=== PATIENT | female | born 1950 | race Caucasian/White ===

== ENCOUNTER → 2016-08-22 | Outpatient (CLI) | payer OTHER ==
[2016-08-22 13:26] LABS: ALT/SGPT 20 U/L (12-78); AST/SGOT 17 U/L (15-37); BLOOD UREA NITROGEN 20 mg/dl (7-18); BUN/CREATININE RATIO 26.2 (10-20); CALCIUM 9.2 mg/dl (8.5-10.1); CARBON DIOXIDE 24 mmol/L (21-32); CHLORIDE 104 mmol/L (98-107); CHOLESTEROL 127 mg/dl (0-200); CREATININE 0.78 mg/dl (0.60-1.20); GLUCOSE 115 mg/dl (70-99); POTASSIUM 3.8 mmol/L (3.5-5.1); SODIUM 142 mmol/L (136-145); TRIGLYCERIDES 133 mg/dl (0-150); VERY LOW DENSITY LIPOPROT CALC 27 mg/dl
[2016-08-22 13:28] LABS: CHOLESTEROL/HDL RATIO 2.2; HDL CHOLESTEROL 58 mg/dl
== END | disposition home or self-care (01) ==
LOC: C.LABMFLN 08:33
PROVIDERS: ATTEND Family Medicine
DX: I10 Essential (primary) hypertension (principal); E55.9 Vitamin D deficiency, unspecified; E78.00 Pure hypercholesterolemia, unspecified; R73.01 Impaired fasting glucose

== ENCOUNTER → 2017-01-07 | Outpatient (CLI) | payer OTHER ==
[2017-01-07 14:16] LABS: ESTIMATED AVERAGE GLUCOSE 128 mg/dl; HA1C FLAG Normal (Normal)
== END ==
LOC: C.LABMFLN 10:05
PROVIDERS: ATTEND Family Medicine
DX: I10 Essential (primary) hypertension (principal); E55.9 Vitamin D deficiency, unspecified; R73.01 Impaired fasting glucose

== ENCOUNTER → 2017-07-10 | Outpatient (CLI) | payer OTHER ==
[2017-07-10 13:16] LABS: ALT/SGPT 23 U/L (12-78); BLOOD UREA NITROGEN 23 mg/dl (7-18); BUN/CREATININE RATIO 30.3 (10-20); CARBON DIOXIDE 27 mmol/L (21-32); CHLORIDE 103 mmol/L (98-107); CREATININE 0.75 mg/dl (0.60-1.20); GLUCOSE 110 mg/dl (70-99); POTASSIUM 3.9 mmol/L (3.5-5.1); SODIUM 138 mmol/L (136-145)
[2017-07-10 13:22] LABS: ESTIMATED AVERAGE GLUCOSE 128 mg/dl; HA1C FLAG Normal (Normal)
== END | disposition home or self-care (01) ==
LOC: C.LABMFLN 09:47
PROVIDERS: ATTEND Family Medicine
DX: I10 Essential (primary) hypertension (principal); E55.9 Vitamin D deficiency, unspecified; E11.40 Type 2 diabetes mellitus with diabetic neuropathy, unspecified; E78.00 Pure hypercholesterolemia, unspecified

== ENCOUNTER → 2018-02-24 | Outpatient (CLI) | payer OTHER | END | disposition home or self-care (01) | LOC: C.LABMFLN 10:09 | PROVIDERS: ATTEND Family Medicine | DX: A41.9 Sepsis, unspecified organism (principal) ==

== ENCOUNTER 2023-12-02 08:22 | Observation (INO) ==
--- NOTE | 2023-11-02 14:48 | PAT Medication Instructions ---
Medication Instructions Date of Service November 02, 2023 Home Medications Medication Instructions Recorded blood-glucose meter (OneTouch #1 ea 04/24/20 Ultra2 Meter kit) CPAP 4 cm Water Full Face mask #1 ea 08/06/20 blood sugar diagnostic #100 ea 10/23/22 lancets 33 gauge #100 ea 10/23/22 metformin 500 mg tablet 500 mg PO QAM #90 tabs 06/05/23 colestipol 1 gram tablet (Colestid) 2 g (2 x 1 gram) PO BID #360 tabs 08/07/23 sertraline 50 mg tablet 50 mg PO QAM #90 tabs 09/14/23 atorvastatin 20 mg tablet 20 mg PO HS #90 tabs 09/25/23 gabapentin 300 mg capsule See Rx Instructions .Route 10/19/23 .COMPLEX #150 caps hydrocodone 7.5 mg-acetaminophen 1 tab PO BID PRN pain #60 tabs 10/20/23 325 mg tablet potassium citrate 5 mEq (540 mg) 5 meq PO BID #60 tabs 10/20/23 tablet,extended release (Urocit-K 5) Medication List: aspirin 81 mg tablet,delayed release 81 mg PO QAM cyanocobalamin (vitamin B-12) 1,000 mcg/mL injection solution 1,000 mcg IM Q30D metformin 500 mg tablet 500 mg PO QAM lisinopril 20 mg tablet 20 mg PO QAM ascorbic acid (vitamin C) 250 mg tablet 500 mg PO QAM cranberry 500 mg capsule 500 mg PO QAM diphenhydramine 25 mg-acetaminophen 500 mg tablet (Tylenol PM Extra Strength) 1 tab PO HS ferrous sulfate 325 mg (65 mg iron) tablet 325 mg PO QAM ondansetron 4 mg disintegrating tablet 4 mg PO Q8H PRN Nausea colestipol 1 gram tablet (Colestid) 2 g (2 x 1 gram) PO BID multivitamin (Daily Multi-Vitamin tablet) 1 tab PO DAILY sertraline 50 mg tablet 50 mg PO QAM atorvastatin 20 mg tablet 20 mg PO HS gabapentin 300 mg capsule See Rx Instructions .Route .COMPLEX hydrocodone 7.5 mg-acetaminophen 325 mg tablet 1 tab PO BID PRN pain potassium citrate 5 mEq (540 mg) tablet,extended release (Urocit-K 5) 5 meq PO BID omeprazole 40 mg capsule,delayed release 40 mg PO QAM MEDICATION INSTRUCTIONS: Continue as directed cyanocobalamin (vitamin B-12) 1,000 mcg/mL injection solution 1,000 mcg IM Q30D ASK your prescriber and surgeon aspirin 81 mg tablet,delayed release 81 mg PO QAM STOP taking 2 weeks before surgery cranberry 500 mg capsule 500 mg PO QAM STOP taking 24 hours before surgery colestipol 1 gram tablet (Colestid) 2 g (2 x 1 gram) PO BID DO NOT take the morning of surgery metformin 500 mg tablet 500 mg PO QAM lisinopril 20 mg tablet 20 mg PO QAM multivitamin (Daily Multi-Vitamin tablet) 1 tab PO DAILY ferrous sulfate 325 mg (65 mg iron) tablet 325 mg PO QAM ascorbic acid (vitamin C) 250 mg tablet 500 mg PO QAM potassium citrate 5 mEq (540 mg) tablet,extended release (Urocit-K 5) 5 meq PO BID Take morning of surgery With a small sip of water, OTHERWISE NOTHING TO EAT OR DRINK AFTER MIDNIGHT: sertraline 50 mg tablet 50 mg PO QAM omeprazole 40 mg capsule,delayed release 40 mg PO QAM hydrocodone 7.5 mg-acetaminophen 325 mg tablet 1 tab PO BID PRN pain (if needed) gabapentin 300 mg capsule See Rx Instructions .Route .COMPLEX ondansetron 4 mg disintegrating tablet 4 mg PO Q8H PRN Nausea (if needed) Take evening before surgery atorvastatin 20 mg tablet 20 mg PO HS diphenhydramine 25 mg-acetaminophen 500 mg tablet (Tylenol PM Extra Strength) 1 tab PO HS potassium citrate 5 mEq (540 mg) tablet,extended release (Urocit-K 5) 5 meq PO BID hydrocodone 7.5 mg-acetaminophen 325 mg tablet 1 tab PO BID PRN pain (if needed) gabapentin 300 mg capsule See Rx Instructions .Route .COMPLEX ondansetron 4 mg disintegrating tablet 4 mg PO Q8H PRN Nausea (if needed) Other Notes If you have any questions please call us at [phone] or [phone] or [phone] or [phone]
--- NOTE | 2023-11-05 10:58 | Anesthesiology Consultation ---
Date of Service November 05, 2023 Assessment & Plan (1) Encounter for pre-operative examination: - Check BSG AM DOS - Infectious disease screening: Per assessment on 11/05/23: No known infectious disease contacts or current infectious disease symptoms. No noted recent Covid positive test result. - Outpatient joint assessment: Pt currently scheduled for inpatient pathway. If surgeon requests review for outpatient joint pathway, patient is not recommended candidate for outpatient joint program from anesthesia standpoint. - S/P EGD/colonoscopy (09/14/23): MAC at [facility] - Pending: * Awaiting surgeon-ordered PCP preop evaluation ([facility], appt 11/15). * Awaiting upcoming neurology visit ([facility], appt 11/22). Chart Review Chart Review: Patient seen in Pre Admission Testing Teaching & Discussion Pre-Anesthesia Teaching/Discussion Notes: Instructed NPO after midnight before surgery,except medications with 15 cc of water. Medication instructions provided according to the PAT guidelines. History Surgery Operation Date: 12/02/23 09:55 Proposed Procedures p Right Total Knee Arthroplasty - Shane Mike MD Height/Weight Height: 5 ft 6 in Weight: 103.2 kg Allergies Allergy/AdvReac Type Severity Reaction Status Date / Time sulfamethoxazole AdvReac "Didn't Verified 11/04/23 10:00 [From Bactrim] work for the infection I had" trimethoprim [From Bactrim] AdvReac "Didn't Verified 11/04/23 10:00 work for the infection I had" Medications Home Medications Medication Instructions Recorded Confirmed Last Taken blood-glucose meter (OneTouch #1 ea 04/24/20 10/19/23 Unknown Ultra2 Meter kit) CPAP 4 cm Water Full Face mask #1 ea 08/06/20 10/19/23 Unknown blood sugar diagnostic #100 ea 10/23/22 10/19/23 Unknown lancets 33 gauge #100 ea 10/23/22 10/19/23 Unknown aspirin 81 mg tablet,delayed 81 mg PO QAM 03/09/23 10/28/23 09/13/23 release cyanocobalamin (vitamin B-12) 1,000 mcg IM Q30D 04/13/23 10/28/23 09/12/23 1,000 mcg/mL injection solution metformin 500 mg tablet 500 mg PO QAM #90 tabs 1110/28/23 09/13/23 lisinopril 20 mg tablet 20 mg PO QAM 06/30/23 10/28/23 09/14/23 ascorbic acid (vitamin C) 250 mg 500 mg PO QAM 07/15/23 10/28/23 09/12/23 tablet cranberry 500 mg capsule 500 mg PO QAM 07/15/23 10/28/23 09/12/23 diphenhydramine 25 1 tab PO HS 07/15/23 10/28/23 09/13/23 mg-acetaminophen 500 mg tablet (Tylenol PM Extra Strength) ferrous sulfate 325 mg (65 mg 325 mg PO QAM 07/15/23 10/28/23 09/11/23 iron) tablet ondansetron 4 mg disintegrating 4 mg PO Q8H PRN Nausea 07/21/23 10/28/23 09/13/23 tablet colestipol 1 gram tablet (Colestid) 2 g (2 x 1 gram) PO BID #360 tabs 08/07/23 10/28/23 09/13/23 multivitamin (Daily Multi-Vitamin 1 tab PO DAILY 09/10/23 10/28/23 09/12/23 tablet) sertraline 50 mg tablet 50 mg PO QAM #90 tabs 09/14/23 10/28/23 Unknown atorvastatin 20 mg tablet 20 mg PO HS #90 tabs 09/25/23 10/28/23 Unknown gabapentin 300 mg capsule See Rx Instructions .Route 10/19/23 10/28/23 Unknown .COMPLEX #150 caps hydrocodone 7.5 mg-acetaminophen 1 tab PO BID PRN pain #60 tabs 10/20/23 10/28/23 Unknown 325 mg tablet potassium citrate 5 mEq (540 mg) 5 meq PO BID #60 tabs 10/20/23 10/28/23 Unknown tablet,extended release (Urocit-K 5) omeprazole 40 mg capsule,delayed 40 mg PO QAM 10/28/23 10/28/23 Unknown release Past Medical History Medical History Actinic keratosis Allergic rhinitis Arteriosclerotic coronary artery disease NSTEMI 2009 in setting of sepsis due to UTI- nuclear stress test 2016- no ischemia per S records (2019 cardio note) Benign essential hypertension Carpal tunnel syndrome on both sides "mild" no surgery Depression Diabetic neuropathy left foot DM type 2 (diabetes mellitus, type 2) Gait disorder Due to right knee pain and left foot neuropathy History of COVID-19 08/17/2023 (home test): cold symptoms, "did the treatment" > symptoms resolved History of kidney stones Hx of vertigo Hypercholesterolemia Raynaud phenomenon followed by Dr. Owens Sleep apnea CPAP (compliant) Urge and stress incontinence Venous insufficiency Exercise / Class Metabolic Activity III < 4 Walking/Shop/Light housework Past Family History Family History Mother Myocardial infarction Father Aortic aneurysm Myocardial infarction Brother Prostate cancer Disc degeneration, lumbar Hypertension Other No family history of adverse response to anesthesia Denies family history of Ovarian cancer Breast cancer Colorectal cancer Past Surgical History Surgical History History of abdominal hysterectomy History of cataract surgery R/L History of colonoscopy History of cystoscopy History of esophagogastroduodenoscopy (EGD) EGD/colonoscopy (09/14/23): MAC at [facility] History of lithotripsy History of nasal septoplasty History of oral surgery History of total left knee replacement (TKR) S/P cholecystectomy laparoscopic Thoracic disc herniation s/p procedure (unsure of specifics- no fusion, [facility]) Past Anesthesia History No Hx of Anesthesia Complications and No Family Hx of Anesthesia Complications History of PONV No Hx of PONV and No Hx of Motion Sickness Social History Smoking Status: Never smoker Do You Dip or Chew Tobacco: No Hx Alcohol Use: No substance use type: does not use Substance Use Type Other:: hydrocodone-acetaminophen Review of Systems Patient denies chest pain, shortness of breath, fever, chills, cough, wheezing, palpitations. Physical Exam Vital Signs BP 106/67 P 70 TEMP 97.9 SP02 96%RA RESP 16 Physical Full cervical extension range of motion. Full TMJ range of motion. TMD > 3.5 finger breaths Mallampati Score 3 Dentition: several missing/broken teeth, upper full denture Lungs: clear throughout to auscultation Cardiac: regular rate and rhythm, no murmurs noted Spine: normal Carotid arteries: negative bruit Extremities: non-pitting LE (L > R) Lab Results Anesthesia Preop Results Results Anesthesia Widget: WBC 6.22 K/ul (4.8-10.8) 11/05/23 Hgb 11.3 g/dl (12.0-16.0) L 11/05/23 Hct 35.6 % (37.0-47.0) L 11/05/23 Plt 273 K/uL (130-400) 11/05/23 Na 137 mmol/L (136-145) 11/05/23 K 4.5 mmol/L (3.5-5.1) 11/05/23 Cl 103 mmol/L (98-107) 11/05/23 CO2 26 mmol/L (21-32) 11/05/23 BUN 31 mg/dl (6-23) H 11/05/23 Creat 0.81 mg/dl (0.6-1.2) 11/05/23 Glucose Level 106 mg/dl (70-99(Fasting)) H 11/05/23 PT 11.1 Seconds (9.0-12.0) 11/05/23 PTT 27 Seconds (21-31) 11/05/23 INR 1.0 (0.9-1.1) 11/05/23 HA1c 6.0 % (4.5-5.6) H 11/05/23 Urine Color Yellow 11/05/23 Urine Appearance Clear (Clear) 11/05/23 Urine pH 5.0 (4.5-7.5) 11/05/23 Urine Specific [place] 1.022 (1.000-1.030) 11/05/23 Urine Protein Negative (Negative) 11/05/23 Urine Glucose (UA) Negative (Negative) 11/05/23 Urine Ketones Negative (Negative) 11/05/23 Urine Blood Negative (Negative) 11/05/23 Urine Nitrite Negative (Negative) 11/05/23 Urine Bilirubin Negative (Negative) 11/05/23 Urine Urobilinogen Negative (Negative) 11/05/23 Urine Leukocyte Esterase 1+ (Negative) H 11/05/23 Urine WBC (Auto) 5-10 /hpf (0-5) H 11/05/23 Urine RBC (Auto) 0-4 /hpf (0-4) 11/05/23 Urine Hyaline Casts (Auto) 0 /lpf (0-5) 11/05/23 Urine Epithelial Cells (Auto) 20-30 /lpf (0-5) H 11/05/23 Urine Bacteria (Auto) 2+ (Negative) H 11/05/23 Blood Type A Positive 11/05/23 Antibody Screen NEGATIVE 11/05/23 Testing Laboratory Results *Surgeon's office made aware of abnormal UA* Electrocardiogram Date: 07/09/23 Sinus rhythm with PACs with aberrant conduction Low voltage QRS axis Poor R wave progression, consider anterior NH versus lead placement versus LVH When compared to EKG from April 11, 2003aberrant conduction is now present, minimal criteria for anterior infarct are now present per cardio Per [facility] EKG from Apr 10, 2019- cannot rule out anterior infarct (cited on or before Sep 30, 2015); had negative stress test Sep 2015 per records. Chest X-Ray Date: 07/09/23 FINDINGS: No lines and tubes are seen. The cardiomediastinal silhouette is normal. The lungs are clear. No evidence of pleural effusion or pneumothorax. IMPRESSION: No acute chest disease.
--- NOTE | 2023-11-27 20:33 | History & Physical Report ---
Date of Service November 27, 2023 Assessment & Plan (1) Osteoarthritis of right knee: Plan: Severe end-stage osteoarthritis right knee with bone loss. Plan for persona total knee replacement with CPS polyethylene for stability and stemmed tibial cemented prosthetic. Osteoarthritis type: primary Qualified Code(s): M17.11 - Unilateral primary osteoarthritis, right knee History of Present Illness Primary Care Provider: Darion Bullock MD Patient denies headaches, sweats, fevers, chills, double vision, blurred vision, cough, sore throat, dysphagia, chest pain, wheezing, n/v/d, fatigue, urinary symptoms, mood disorders. ROS positive for use of home CPAP, foot neuropathy, s ome shortness of breath with activity, anemia, obesity, history of kidney stones Allergies Allergy/AdvReac Type Severity Reaction Status Date / Time sulfamethoxazole AdvReac "Didn't Verified 11/23/23 14:11 [From Bactrim] work for the infection I had" trimethoprim [From Bactrim] AdvReac "Didn't Verified 11/23/23 14:11 work for the infection I had" Home Medications Medication Instructions Recorded Confirmed Type blood-glucose meter (OneTouch #1 ea 04/24/20 11/23/23 Rx Ultra2 Meter kit) CPAP 4 cm Water Full Face mask #1 ea 08/06/20 11/23/23 Rx blood sugar diagnostic #100 ea 10/23/22 11/23/23 Rx lancets 33 gauge #100 ea 10/23/22 11/23/23 Rx aspirin 81 mg tablet,delayed 81 mg PO QAM 03/09/23 11/23/23 History release cyanocobalamin (vitamin B-12) 1,000 mcg IM Q30D 04/13/23 11/23/23 History 1,000 mcg/mL injection solution metformin 500 mg tablet 500 mg PO QAM #90 tabs 06/05/23 11/23/23 Rx lisinopril 20 mg tablet 20 mg PO QAM 06/30/23 11/23/23 History cranberry 500 mg capsule 500 mg PO QAM 07/15/23 11/23/23 History diphenhydramine 25 1 tab PO HS 07/15/23 11/23/23 History mg-acetaminophen 500 mg tablet (Tylenol PM Extra Strength) ondansetron 4 mg disintegrating 4 mg PO Q8H PRN Nausea 07/21/23 11/23/23 History tablet colestipol 1 gram tablet (Colestid) 2 g (2 x 1 gram) PO BID #360 tabs 08/07/23 11/23/23 Rx multivitamin (Daily Multi-Vitamin 1 tab PO DAILY 09/10/23 11/23/23 History tablet) sertraline 50 mg tablet 50 mg PO QAM #90 tabs 09/14/23 11/23/23 Rx atorvastatin 20 mg tablet 20 mg PO HS #90 tabs 09/25/23 11/23/23 Rx gabapentin 300 mg capsule See Rx Instructions .Route 10/19/23 11/23/23 Rx .COMPLEX #150 caps potassium citrate 5 mEq (540 mg) 5 meq PO BID #60 tabs 10/20/23 11/23/23 Rx tablet,extended release (Urocit-K 5) ascorbic acid (vitamin C) 250 mg 500 mg (2 x 250 mg) PO BID #60 tabs 11/16/23 11/23/23 Rx tablet ferrous sulfate 325 mg (65 mg 325 mg PO BID #60 tabs 11/16/23 11/23/23 Rx iron) tablet ketoconazole 2 % topical cream 1 applic topical BID #15 grams 11/16/23 11/23/23 Rx mupirocin 2 % topical ointment 1 applic topical BID #15 grams 11/16/23 11/23/23 Rx omeprazole 40 mg capsule,delayed 40 mg PO BID #60 caps 11/16/23 11/23/23 Rx release hydrocodone 7.5 mg-acetaminophen 1 tab PO BID PRN pain #60 tabs 11/19/23 11/23/23 Rx 325 mg tablet Past Med/Surg History Medical History Actinic keratosis Allergic rhinitis Arteriosclerotic coronary artery disease Benign essential hypertension Carpal tunnel syndrome on both sides Depression Diabetic neuropathy DM type 2 (diabetes mellitus, type 2) Gait disorder History of COVID-19 History of kidney stones Hx of vertigo Hypercholesterolemia Raynaud phenomenon Sleep apnea Urge and stress incontinence Venous insufficiency Surgical History History of abdominal hysterectomy History of cataract surgery History of colonoscopy History of cystoscopy History of esophagogastroduodenoscopy (EGD) History of lithotripsy History of nasal septoplasty History of oral surgery History of total left knee replacement (TKR) S/P cholecystectomy Thoracic disc herniation Family History Prostate cancer Brother Aortic aneurysm Father No family history of adverse response to anesthesia Myocardial infarction Mother Father Disc degeneration, lumbar Brother Hypertension Brother Denies family history of Ovarian cancer Breast cancer Colorectal cancer Social History Smoking Status: Never smoker Second Hand Exposure: Yes (as a child); Do You Dip or Chew Tobacco: No; Hx Alcohol Use: No Preferred Language: Moldovan Communication Ability: Effective Visual Impairment: Partially Limited Hearing Ability: Normal Logistics Supervisor Required: No Beliefs That Will Affect Care: Caodaism Caodaism Beliefs: Rastafarian marital status: Current Living Situation: Spouse current occupational status: retired current occupation: part-time home health aid How many Children do You have: 3 How many Children do You have Comment: 2 Alive and 1 Feels Safe at Home: Yes Childhood Exposure to Second-Hand Smoke: Yes Diet: regular caffeine: Yes (soda occasionally/ coffee rarely in winter) during the past year weight has: remained stable Dental Care, Regularly: Yes Physical Activity Frequency: Does not Exercise Seatbelt Use: always Sunscreen Use: Yes Do you think of yourself as: straight/heterosexual Gender Identity: Female Assistive Devices: CPAP, Denture - Upper, Glasses and Walker Review of Systems All systems reviewed & are unremarkable except as noted in HPI & below Physical Exam Constitutional: WD/WN, vitals as above Respiratory: normal respiratory effort; no respiratory distress Cardiovascular: Rate/Rhythm: regular rate and regular rhythm Musculoskeletal: Right knee with moderate swelling patella crepitation painful range of motion 25 through 95 degrees of range of motion normal strength and neurological exam intact except for chronic lymphedema right lower extremity and foot neuropathy. Skin: no rashes, warm and dry Neurologic: normal touch/pain/proprioception Psychiatric: A+Ox3, euthymic affect Results & Data Diagnostic Findings Right knee x-rays demonstrate a varus knee with [id number] medial compartment with subluxation of the femur medially on the tibia with medial compartment osteophytes and moderately advanced patellofemoral osteophytes and an ipsilateral total knee replacement.
[~2023-12-02 08:22] MED LIST: BUPIVACAINE 0.25% PF 30 ML VIAL ONE; BUPIVACAINE 0.5 % 5 MG/1 ML PF 10ML VIAL ONE; DEXAMETHASONE SOD INJ 4 MG/ML VIAL ONE; EPINEPHrine INJ 1 MG/ML AMP ONE
[2023-12-02] MEDS ORDERED: MIDAZOLAM HCL 1 MG/ML 2ML VIAL ONE (08:55)
[2023-12-02] MEDS ORDERED: LIDOCAINE 2% 2 ML VIAL/AMP(20MG/ML) INFIL ONE (08:55)
[2023-12-02] MEDS ORDERED: fentaNYL citrate PF 100 MCG/2 ML VIAL ONE (08:55)
[2023-12-02] MEDS ORDERED: PROPOFOL IV EMULSION 10 MG/ML 20 ML VIAL IV ONE (08:55)
[2023-12-02] MEDS ORDERED: fentaNYL citrate PF 100 MCG/2 ML VIAL IV PRN (09:00)
[2023-12-02] MEDS ORDERED: ePHEDrine sulfate 50 MG/ML AMP IV PRN (09:00)
[2023-12-02] MEDS ORDERED: ATROPINE SULFATE 0.1 MG/ML 10ML SYR IV PRN (09:00)
[2023-12-02] MEDS ORDERED: ONDANSETRON INJ 2 MG/ML 2 ML VIAL IV PRN ×2 (09:00→13:59)
[2023-12-02] MEDS ORDERED: PROMETHAZINE HCL 6.25 MG in SODIUM CHLORIDE 0.9% 50 ML IV PRN (09:00)
[2023-12-02] MEDS: ACETAMINOPHEN 500 MG TAB PO SCH ×2 (09:40→16:27)
[2023-12-02] MEDS: GABAPENTIN 300 MG CAP PO SCH ×2 (09:41→22:19)
[2023-12-02] MEDS: FAMOTIDINE 20 MG TAB PO SCH (09:41)
[2023-12-02] MEDS: CeleBREX 200 MG CAP PO SCH (09:41)
[2023-12-02] MEDS: LR 500ML BOLUS, THEN 15ML/HR IV SCH (09:42)
[2023-12-02] MEDS: METOCLOPRAMIDE HCL 10 MG TABLET PO SCH (09:42)
[2023-12-02] MEDS: LR 60ML/HR IV SCH (09:42)
[2023-12-02] MEDS: TRANEXAMIC ACID 1,000 MG **IV Pre-op IV SCH (09:46)
--- NOTE | 2023-12-02 09:46 | History & Physical Bridge Note ---
Date of Service December 02, 2023 History & Physical Bridge Note I have examined the patient, reviewed the History & Physical and in the interval since the performance of the History & Physical I have noted the following changes of clinical significance: Oval red area on right forearm where she burned herself from steam during cooking.this is superficial redness. Her right second toe has a claw toe with callus on the end of the toe with no erythema no drainage no signs of infection. Chronic venous stasis changes of the pretibial area no signs of active infection.
[2023-12-02] MEDS: ceFAZolin 2000MG 2,000 MG/15 ML SYR IV SCH ×2 (10:10→18:26)
[2023-12-02] MEDS ORDERED: ePHEDrine sulfate 50 MG/5 ML SYR ONE (10:26)
[2023-12-02] MEDS ORDERED: PHENYLEPHRINE 100MCG/ML 10ML SYR IV ONE (10:58)
[2023-12-02] MEDS: TRANEXAMIC ACID 1,000 MG **IV Intra-op IV SCH (11:45)
[2023-12-02] MEDS: ROPIV 0.5% 246mg, Ketorolac 30mg, EPINEPHrine 0.5mg in NSS INFIL SCH (11:45)
--- NOTE | 2023-12-02 12:02 | Operative Report ---
Post Operative Report Pre & Post Diagnosis Operation Date: 12/02/23 10:05 Pre-Op Diagnosis: Osteoarthritis Knee Right Post-Op Diagnosis: Osteoarthritis Knee Right I identified the patient and participated in the time-out.: Yes Procedure Operation Date: 12/02/23 10:05 Actual Procedures p Right Total Knee Arthroplasty(Right), lateral release, inocente and Acticoat superficial wound VAC application- Shane Mike MD Surgeon Shane Mike MD [employer] Officer Fortunato BRADLEY Estimated Blood Loss 5 Findings Consistent with Post-Op Diagnosis Specimens Bone cuts Drains 2 Hemovac Anesthesia Type MAC Spinal Regional Complications none Disposition Disposition: Recovery Room Indications 73-year-old female with chronic progressive osteoarthritis right knee failed conservative management. She has severe osteoarthritis she has tricompartmental osteoarthritis [id number] medial and lateral compartment with subluxation femur medial and tibia. there is bone loss medial compartment. Description of Procedure Patient taken to the operating room the size under spinal MAC regional block anesthesia. Patient was placed supine on the operating table. A pneumatic tourniquet was placed about the right obese upper thigh. The right lower extremity was prepped and draped in sterile fashion. Knee exam demonstrated 10 degree flexion contracture with flexion to 120 degrees with a varus knee no instability no pseudolaxity.. The leg was elevated exsanguinated with an Esmarch bandage and pneumatic tourniquet was raised to 350 millimeters of m ercury. Skin incised sharply in longitudinal fashion. Subcutaneous flaps elevated. Incision was made through the medial retinaculum extending up in the mid third of the quadriceps tendon and down to the medial tibial tubercle. Intra-articular findings demonstrated tricompartmental osteoarthritis [id number] in the medial and lateral compartment with bone loss medial compartment tricompartmental osteophytes, chronic synovitis, degenerative medial lateral meniscus tears with intact cruciate ligaments. The [employer] persona total knee arthroplasty system was used. To expose the knee the infrapatellar fat pad was resected. The meniscal remnants and cruciate ligaments were resected. The anterior fat pad over the femur in the area of the location of the anterior flange of the femoral component was resected. The lateral synovial bands were released. The femur was exposed. An intramedullary drill hole was made into the canal. A guide dana was placed. Distal femoral cutting guide was adjusted to resect a 5 degree valgus cut with +2 additional millimeters from standard cut of distal femur resected due to flexion contracture. The knee was extended and a subperiosteal peel lateral release was performed around the patella. Patella width was measured and width was reproduced using a freehand cut technique and a 29 symmetrical patella component. The 3 drill holes were made and the excess lateral facet was beveled off to prevent any impingement. Attention was taken back to the femur which was exposed with retractors and the femoral sizing guide was pinned in position. The drill holes were placed in 3 of external rotation to match the epicondylar axis. The femur sized for an 8 component. The 4-in-1 cutting block was placed and then the anterior posterior and chamfer cuts are made. The tibia was then subluxed. The external tibial cutting guide was adjusted to make a perpendicular cut to the long axis of the tibia below the most deficient bone loss side. Cut was adjusted for slope. A lamina fortune teller was used and the flexion extension gaps were balanced. Medial and posterior medial releases were required. All posterior osteophytes removed. All meniscal remnants were resected. The tibia exposed and the trial tibial component size E was externally rotated in line with the tibial tubercle and pinned in position. The drill and punch for stem was used.The femoral trial was inserted. The notch cut was made and a collet was placed. Trial CPS tibial inserts were placed and size 12 gave balanced ligaments through flexion and extension. Patella tracking was assessed. The patella tracked with some lateral patellar tilt so I did had to do a lateral release maintaining the synovium intact. Patella tracks centrally afterwards.. The trial components were then removed and the orthomix anesthetic cocktail was injected per protocol. The knee was then copiously irrigated with pulsatile lavage saline solution. Final components were then cemented with Refobacin cement. Xperience irrigation placed over metal compoments prior to polyethylene insertion. Final components were size 8 narrow posterior stabilized [employer] persona right femoral component, size E right tibia with a 14 x 30 mm cemented stem and a 12 CPS tibial polyethylene and a 29 mm symmetrical patella. After the cement cured further pulsatile lavage irrigation was then performed with Xperience and 2 Hemovac drains were brought out laterally. The quadriceps tendon and medial retinaculum were closed with figure of 8 #1 Vicryl sutures. The knee was taken through full range of motion and the repair was secure. Knee range of motion was 0 through 125 degrees. The subcutaneous tissues were closed with 2-0 Vicryl sutures. Skin was closed with surgical miguel. A inocente and Acticoat superficial wound VAC was applied. The patient tolerated the procedure well. Fortunato BRADLEY was my physician anesthesiology physician assistant who participated as heel sprayer first and was involved in all aspects of the procedure including patient positioning prepping and draping,leg positioning ,soft tissue retraction and instrument management and participated in the closing and application of the wound VAC and will participate in postoperative care of the patient. The patient tolerated the procedure well. I attest to the content of the Intraoperative Record and any orders documented therein. Any exceptions are noted below.
--- NOTE | 2023-12-02 13:03 | Anesthesiology Progress Note ---
Date of Service December 02, 2023 Anesthesia Post Procedure Vital Signs Vital Signs: Temp Pulse Resp BP Pulse Ox O2 Del Method O2 Flow Rate 12/02/23 12:45 36.4 C L 74 15 148/61 H 100 Room Air 12/02/23 12:35 71 12 143/58 H 100 Room Air 12/02/23 12:25 72 14 143/70 H 98 Oxymask 9 12/02/23 12:15 36.6 C 79 15 133/68 98 Oxymask 9 12/02/23 08:56 36.7 C 61 16 172/81 H 100 Room Air Transfer of Care Handoff Completed per policy Notes Mental Status: alert / awake / arousable Patient Amnestic to Procedure: Yes Nausea / Vomiting: adequately controlled Pain: adequately controlled Airway Patency, RR, SpO2: stable & adequate BP & HR: stable & adequate Hydration State: stable & adequate Neuraxial Anesthesia: was administered and sensory block is resolving Anesthetic Complications: no major complications apparent and Pt Satisfied with anesthetic care
--- NOTE | 2023-12-02 13:25 | XRay Report ---
RIGHT KNEE 2 VIEWS History: Right total knee arthroplasty. Degenerative arthritis. Postop. FINDINGS: The patient is status post a right total knee arthroplasty. The hardware is intact. No frac ture or dislocation. Skin miguel and surgical drains are in place. IMPRESSION: Right total knee arthroplasty. No evidence for hardware complication. ACT 112: Negative or not required by law. Electronically signed by: Jonny Jimenez M.D. 12/02/2023 1:24 PM
[2023-12-02] MEDS ORDERED: diphenhydrAMINE 50 MG/ML VIAL IV PRN (13:59)
[2023-12-02] MEDS ORDERED: NALOXONE HCL 0.4 MG/1 ML VIAL/CARP IV PRN (13:59)
[2023-12-02] MEDS ORDERED: bisacodyL 10 MG SUPP PR PRN (13:59)
[2023-12-02] MEDS ORDERED: PHARMACY GLYCEMIC MGMT CONSULT PRN (13:59)
--- NOTE | 2023-12-02 14:36 | Pharmacy Report ---
Pharmacy Glycemic Short Note 2 - Date of Service December 02, 2023 - Glycemic Short BSG Results (Last 24 hours): 12/02/23 12/02/23 08:46 12:18 POC Glucose 113 H 119 H OUTPATIENT ANTIDIABETIC REGIMEN: * Metformin 500mg PO Daily * A1c 6% 11/05/23 ASSESSMENT: * 73 yo F, s/p TKA, received 4mg IV dexamethasone intraop, type 2 DM well controlled on only metformin at home. * Oral agents are not recommended for inpatient use d/t drug interactions, changing PO intake, and difficulty titrating for acute hyper/hypoglycemia. * Will hold oral agents for admission and utilize SQ basal bolus insulin regimen which is the recommended regimen for inpatient glycemic control. * No basal at this time as BSGs < 150mg/dl postop, PRN HS for BSG > 180mg/dl PLAN FOR INPATIENT GLYCEMIC CONTROL: * Hold outpatient oral diabetes medications * Basal insulin * Lantus 15 units SQ HS for BSG > 180mg/dl * Bolus insulin * NovoLog per scale ACHS or Q6hrs while NPO * Goal Range: Low 110 mg/dL - High 140 mg/dL * Correction Factor: 25 mg/dL/unit * Nutritional / Prandial insulin per carb ratio of 1 unit per 8 grams CHO consumed
[2023-12-02] MEDS: oxyCODONE HCL IR 5 MG TAB (IMMEDIATE RELEASE) PO PRN (14:44)
[2023-12-02] MEDS ORDERED: GLUCOSE 40% GEL 15 GM TUBE PO PRN ×2 (14:45→15:00)
[2023-12-02] MEDS ORDERED: GLUCAGON FOR INJ 1 MG VIAL IM PRN ×2 (14:45→15:00)
[2023-12-02] MEDS ORDERED: GLUCOSE 10 TAB/TUBE PO PRN ×2 (14:45→15:00)
[2023-12-02] MEDS ORDERED: CARBOHYDRATES FOR HYPOGLYCEMIA PO PRN ×2 (14:45→15:00)
[2023-12-02] MEDS ORDERED: DEXTROSE 50% 50 ML SYRINGE IV PRN ×2 (14:45→15:00)
[2023-12-02] MEDS: ORTHO JOINT ANESTHETIC ONE (16:18)
[2023-12-02] MEDS: SODIUM CHLORIDE 0.9% 1,000 ML IV SCH (16:18)
[2023-12-02] MEDS: INSULIN ASPART PER UNIT CHARGE SC SCH (16:22)
--- NOTE | 2023-12-02 17:32 | Hospitalist Consultation ---
Date of Consultation December 02, 2023 Assessment & Plan (1) Osteoarthritis: p Right Total Knee Arthroplasty(Right), lateral release, inocente and Acticoat superficial wound VAC application- Shane Mike MD on 12/01 EBL 5cc Pain control, bowel regimen, PT/OT per primary service DVT proph: ASA 81mg BID CM to follow -- patient reports she is planning for rehab at discharge and already called [facility] Monitor labs in AM (2) Benign essential hypertension: BP stable post-op in setting of pain from surgery 146/69. No lightheaded/dizziness/CP/SOB Will hold lisinopril for now to prevent hypotension from anesthesia/medications, if BP stable/renal function stable in AM can resume (3) Hypercholesterolemia: continue statin (4) Peptic ulcer disease: recent endoscopy with ulcers, non-bleeding ppi continue but will make BID as increased as outpatient CAUTIOUS USE NSAIDS, would avoid as able (5) Peripheral neuropathy: continue home meds, B12 recently checked/normal follows with neurology and plans for outpatient follow up for further testing. ?consideration for possible raynauds/addition of CCB (6) Obstructive sleep apnea: CPAP HS ordered (7) Type 2 diabetes mellitus with diabetic neuropathy: home metformin on hold pharmacy consulted for glycemic management given steroids w/ surgery by primary service Plan Thank you for allowing hospitalist service participate in the care of Ms Hickman. Hospitalist service will follow along in AM. Please call with any questions/concerns. Supervising Physician Co-Signing Physician Notes The patient was not seen by me. The chart was reviewed. Case discussed with MIRNA Escalona. Agree with assessment and plan History of Present Illness Reason for Consultation: medical management Requesting Physician: Dr Mike Attending Physician: Shane Mike MD History of Present Illness 73yo female with PMHx significant HTN, HLD, DM II, peripheral neuropathy, depression, venous insufficiency, MIRANDA (on CPAP), raynoud's, vertigo presented for RIGHT TKA with Dr Mike this morning. Evaluated post-op, sitting up in bed eating. Reports good appetite. Pain controlled with ordered medications. Has been on twice daily PPI, iron/vit C. Reports she is wondering if needing to take iron twice daily as causing her stools to be very dark. Discussed could continue once daily/PPI. Baseline neuropathy, plans for f/u neurology in 4 weeks for testing, possible underlying Raynuads/consideration for amlodipine given she reports color changes to her hands/fingers, wears gloves and painful when cold. Also has carpel tunnel and generalized neuropathy, worse on the left. She does have a small area of redness to her R forearm, reports getting steam burn from dinner over the weekend and was using noxema. Pain controlled, no CP/SOB. She is planning for rehab at discharge, reports she already called [facility] given prior good experience and less travel for her . Did not get to see therapy as arrived to floor >3pm but hopeful to see them first thing in the morning. Questions/concerns addressed at this time. Allergies Allergy/AdvReac Type Severity Reaction Status Date / Time sulfamethoxazole AdvReac "Didn't Verified 12/02/23 08:53 [From Bactrim] work for the infection I had" trimethoprim [From Bactrim] AdvReac "Didn't Verified 12/02/23 08:53 work for the infection I had" Home Medications Medication Instructions Recorded Confirmed Type blood-glucose meter (OneTouch #1 ea 04/24/20 11/23/23 Rx Ultra2 Meter kit) CPAP 4 cm Water Full Face mask #1 ea 08/06/20 11/23/23 Rx blood sugar diagnostic #100 ea 10/23/22 11/23/23 Rx lancets 33 gauge #100 ea 10/23/22 11/23/23 Rx aspirin 81 mg tablet,delayed 81 mg PO QAM 03/09/23 12/02/23 History release metformin 500 mg tablet 500 mg PO QAM #90 tabs 06/05/23 12/02/23 Rx lisinopril 20 mg tablet 20 mg PO QAM 06/30/23 12/02/23 History cranberry 500 mg capsule 500 mg PO QAM 07/15/23 12/02/23 History diphenhydramine 25 1 tab PO HS 07/15/23 12/02/23 History mg-acetaminophen 500 mg tablet (Tylenol PM Extra Strength) ondansetron 4 mg disintegrating 4 mg PO Q8H PRN Nausea 07/21/23 12/02/23 History tablet colestipol 1 gram tablet (Colestid) 2 g (2 x 1 gram) PO BID #360 tabs 08/07/23 12/02/23 Rx sertraline 50 mg tablet 50 mg PO QAM #90 tabs 09/14/23 12/02/23 Rx atorvastatin 20 mg tablet 20 mg PO HS #90 tabs 09/25/23 12/02/23 Rx gabapentin 300 mg capsule See Rx Instructions .Route 10/19/23 12/02/23 Rx .COMPLEX #150 caps potassium citrate 5 mEq (540 mg) 5 meq PO BID #60 tabs 10/20/23 12/02/23 Rx tablet,extended release (Urocit-K 5) ascorbic acid (vitamin C) 250 mg 500 mg (2 x 250 mg) PO BID #60 tabs 11/16/23 12/02/23 Rx tablet ferrous sulfate 325 mg (65 mg 325 mg PO BID #60 tabs 11/16/23 12/02/23 Rx iron) tablet ketoconazole 2 % topical cream 1 applic topical BID #15 grams 11/16/23 12/02/23 Rx mupirocin 2 % topical ointment 1 applic topical BID #15 grams 11/16/23 12/02/23 Rx omeprazole 40 mg capsule,delayed 40 mg PO BID #60 caps 11/16/23 12/02/23 Rx release hydrocodone 7.5 mg-acetaminophen 1 tab PO BID PRN pain #60 tabs 11/19/23 12/02/23 Rx 325 mg tablet acetaminophen 500 mg tablet 1,000 mg (2 x 500 mg) PO Q8 14 12/02/23 Rx (Tylenol Extra Strength) days #84 tabs ascorbic acid (vitamin C) 500 mg 500 mg PO DAILY 12/02/23 12/02/23 History tablet (Vitamin C) aspirin 81 mg tablet,delayed 81 mg PO BID 30 days #60 tabs 12/02/23 Rx release cefadroxil 500 mg capsule 500 mg PO BID #28 caps 12/02/23 Rx cyanocobalamin (vitamin B-12) 1,000 mcg PO DAILY 12/02/23 12/02/23 History 1,000 mcg tablet (Vitamin B-12) Patient History Medical History History of kidney stones Hx of vertigo History of COVID-19 08/17/2023 (home test): cold symptoms, "did the treatment" > symptoms resolved Raynaud phenomenon followed by Dr. Owens Carpal tunnel syndrome on both sides "mild" no surgery Sleep apnea CPAP (compliant) DM type 2 (diabetes mellitus, type 2) Diabetic neuropathy left foot Gait disorder Due to right knee pain and left foot neuropathy Actinic keratosis Allergic rhinitis Arteriosclerotic coronary artery disease NSTEMI 2009 in setting of sepsis due to UTI- nuclear stress test 2016- no ischemia per S records (2019 cardio note) Benign essential hypertension Depression Hypercholesterolemia Urge and stress incontinence Venous insufficiency Surgical History Thoracic disc herniation s/p procedure (unsure of specifics- no fusion, S) History of esophagogastroduodenoscopy (EGD) EGD/colonoscopy (09/14/23): MAC at [facility] History of cataract surgery R/L History of total left knee replacement (TKR) History of colonoscopy History of abdominal hysterectomy History of nasal septoplasty History of lithotripsy History of oral surgery History of cystoscopy S/P cholecystectomy laparoscopic Family History Mother Myocardial infarction Father Aortic aneurysm Myocardial infarction Brother Prostate cancer Disc degeneration, lumbar Hypertension Other No family history of adverse response to anesthesia Denies family history of Ovarian cancer Breast cancer Colorectal cancer Social History Smoking Status: Never smoker Second Hand Exposure: Yes (as a child); Do You Dip or Chew Tobacco: No; Hx Alcohol Use: No Preferred Language: Bhutanese Communication Ability: Effective Visual Impairment: Partially Limited Hearing Ability: Normal [place] Press Operator Required: No Beliefs That Will Affect Care: Mandaen Mandaen Beliefs: Sikh marital status: Current Living Situation: Spouse current occupational status: retired current occupation: part-time home health aid How many Children do You have: 3 How many Children do You have Comment: 2 Alive and 1 Feels Safe at Home: Yes Safety Concerns: Feels Safe At This Time Childhood Exposure to Second-Hand Smoke: Yes Diet: regular caffeine: Yes (soda occasionally/ coffee rarely in winter) during the past year weight has: remained stable Dental Care, Regularly: Yes Physical Activity Frequency: Does not Exercise Seatbelt Use: always Sunscreen Use: Yes Do you think of yourself as: straight/heterosexual Gender Identity: Female Assistive Devices: Cane, CPAP and Walker Physical Exam Physical Exam: 73yo female sitting up in bed, eating di nner, NAD HEENT: head atraumatic, normocephalic, mmm, trachea midline Resp: even/unlabored, no w/c/r, on room air CV: RRR, no significant m/r/g, trace pedal edema, pulses palpable, calves nontender GI: +BS, soft/NT : no sanz MSK/Neuro: RLE w/ dressing in place, toes mobile, baseline neuropathy, drain scant bloody output b/l carpel tunnel/neuropathy, ?underlying raynauds Skin: R forearm w/ small area of redness from prior reported steam/burn, no cellulitis/blister or tenderness Psych: AOx3, cooperative with exam Results & Data Results & Data Vital Signs (Past 12 Hours) Vital Signs Temp Pulse Pulse Resp BP Pulse Ox O2 Del Method 12/02/23 15:25 36.8 C 80 14 146/69 H 100 Room Air 12/02/23 15:00 84 19 144/65 H 96 Room Air 12/02/23 14:30 92 H 19 119/65 93 Room Air 12/02/23 14:00 81 16 144/58 H 95 Room Air 12/02/23 13:45 83 13 133/76 96 Room Air 12/02/23 13:30 71 14 147/59 H 96 Room Air 12/02/23 13:15 72 15 146/60 H 95 Room Air 12/02/23 13:00 73 12 129/53 L 99 Room Air 12/02/23 12:45 36.4 C L 74 15 148/61 H 100 Room Air 12/02/23 12:35 71 12 143/58 H 100 Room Air 12/02/23 12:25 72 14 143/70 H 98 Oxymask 12/02/23 12:15 36.6 C 79 15 133/68 98 Oxymask 12/02/23 08:56 36.7 C 61 16 172/81 H 100 Room Air O2 Flow Rate 12/02/23 15:25 12/02/23 15:00 12/02/23 14:30 12/02/23 14:00 12/02/23 13:45 12/02/23 13:30 12/02/23 13:15 12/02/23 13:00 12/02/23 12:45 12/02/23 12:35 12/02/23 12:25 9 12/02/23 12:15 9 12/02/23 08:56 Laboratory Results 12/02/23 12/02/23 12/02/23 Range/Units 15:38 12:18 08:46 POC Glucose 156 H 119 H 113 H (70-99) mg/dl Diagnostic Findings Knee X-Ray 12/02/23 12:25 RIGHT KNEE 2 VIEWS History: Right total knee arthroplasty. Degenerative arthritis. Postop. FINDINGS: The patient is status post a right total knee arthroplasty. The hardware is intact. No fracture or dislocation. Skin miguel and surgical drains are in place. IMPRESSION: Right total knee arthroplasty. No evidence for hardware complication. ACT 112: Negative or not required by law. Electronically signed by: Jonny Jimenez M.D. 12/02/2023 1:24 PM PG Care Time/CCT Total # of Minutes Spent Total Time Spent with Patient: Total time spent is greater than 50% in coordination of care (as documented) at patient's floor/unit and/or counseling patient: Coding Level of Care Code 86464 IN/OBS CONSULT LVL 3,45M Diagnoses Osteoarthritis M19.90 Benign essential hypertension I10 Hypercholesterolemia E78.00 Peptic ulcer disease K27.9 Peripheral polyneuropathy G62.9 Peripheral neuropathy type: polyneuropathy, unspecified Obstructive sleep apnea G47.33 Type 2 diabetes mellitus with diabetic neuropathy, without long-term current use of insulin E11.40 Diabetes mellitus usp insulin use: without usp use (5) Peripheral neuropathy Peripheral neuropathy type: polyneuropathy, unspecified Qualified Code(s): G62.9 - Polyneuropathy, unspecified (7) Type 2 diabetes mellitus with diabetic neuropathy Diabetes mellitus usp insulin use: without usp use Qualified Code(s): E11.40 - Type 2 diabetes mellitus with diabetic neuropathy, unspecified
[2023-12-02] MEDS: SENNA 8.6 MG TAB PO SCH (22:16)
[2023-12-02] MEDS: PANTOprazole 40 MG TAB PO SCH (22:16)
[2023-12-02] MEDS: DOCUSATE SODIUM 100 MG CAP PO SCH (22:17)
[2023-12-02] MEDS: ASPIRIN 81 MG ECTAB PO SCH (22:17)
[2023-12-02] MEDS: ATORVASTATIN 20 MG TAB PO SCH (22:18)
[2023-12-02] MEDS: FERROUS SULFATE 325 MG TAB PO SCH (22:19)
[2023-12-02] MEDS: COLESTIPOL HCL 1 GM TAB PO SCH (22:20)
--- NOTE | 2023-12-03 07:32 | Orthopedic Progress Note ---
Date of Service December 03, 2023 Assessment & Plan (1) Osteoarthritis of right knee: Plan: Postop day 1 status post right total knee arthroplasty. PT/OT protocols. Weightbearing as tolerated. DVT prophylaxis-aspirin p.o. twice daily, SCDs, DILLON jolley. Pain management as written. Labs pending DC planning-patient is hoping to go to [facility] when authorization has been obtained Admission and Anticipated Discharge Date Admission Date: December 02, 2023 Subjective Patient lying in bed awake and alert. No complaints this morning. States that she was up to the bathroom last night with some mild discomfort. She denies any shortness of breath, chest pain, lightheadedness. Patient discussed that she would like to go to [facility] for for further rehab once she is discharged. Stated that case management would be in to see her to discuss it. Physical Exam Physical Exam: Dressings are clean, dry, and intact. Calves are soft nontender. Neurovascular intact. Toes are mobile. She has good dorsiflexion and plantarflexion of her right foot. 50 cc of drainage from the Hemovac from the previous shift. Results & Data Vital Signs (Past 12 Hours) Vital Signs Temp Pulse Pulse Resp BP BP Pulse Ox 12/03/23 03:35 36.6 C 78 16 177/78 H 99 12/03/23 00:18 36.5 C 77 16 154/61 H 99 12/02/23 20:16 36.7 C 74 74 16 131/70 95 O2 Del Method 12/03/23 03:35 Room Air 12/03/23 00:18 Room Air 12/02/23 20:16 Room Air Laboratory Results Laboratory Results POC Glucose 131 mg/dl (70-99) H 12/02/23 21:05 Impressions Knee X-Ray 12/02/23 12:25 RIGHT KNEE 2 VIEWS History: Right total knee arthroplasty. Degenerative arthritis. Postop. FINDINGS: The patient is status post a right total knee arthroplasty. The hardware is intact. No fracture or dislocation. Skin miguel and surgical drains are in place. IMPRESSION: Right total knee arthroplasty. No evidence for hardware complication. ACT 112: Negative or not required by law. Electronically signed by: Jonny Jimenez M.D. 12/02/2023 1:24 PM (1) Osteoarthritis of right knee Osteoarthritis type: primary Qualified Code(s): M17.11 - Unilateral primary osteoarthritis, right knee
[2023-12-03 07:37] LABS: Hematocrit (blood only) 29.3 % (37.0-47.0); Hemoglobin 9.7 g/dl (12.0-16.0); Mean Corpuscular Hemoglobin 29.5 pg (25.0-34.0); Mean Corpuscular Hgb Conc 33.1 g/dL (32.0-36.0); Mean Corpuscular Volume 89.1 fL (80.0-100.0); Platelet Count 231 K/uL (130-400); RDW Coefficient of Variation 13.6 % (11.5-14.5); RDW Standard Deviation 44.6 fL (36.4-46.3); Red Blood Count 3.29 M/uL (4.20-5.40); White Blood Count 12.55 K/ul (4.8-10.8)
[2023-12-03] MEDS: POTASSIUM CITRATE 10 MEQ TAB PO SCH (08:02)
[2023-12-03] MEDS: MULTIVITAMIN TAB PO SCH (08:02)
[2023-12-03] MEDS: SERTRALINE HCL 50 MG TABLET PO SCH (08:02)
[2023-12-03] MEDS: CYANOCOBALAMIN (B-12) 500 MCG TABLET PO SCH (08:02)
[2023-12-03 08:07] LABS: Calcium 8.4 mg/dl (8.6-10.3); Potassium 4.3 mmol/L (3.5-5.1)
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
[2023-12-03 08:12] LABS: BUN Creatinine Ratio 36.9 (10-20); Creatinine Clr Calc Pharmacy 69.2 ml/min; Est GFR (African American) 78.8 ml/min
[2023-12-03] MEDS ORDERED: PANTOprazole 40 MG TAB PO SCH (09:00)
[2023-12-03] MEDS ORDERED: metFORMIN HCL 500 MG TAB PO SCH (09:00)
[2023-12-03] MEDS: lisinopril 20 MG TAB PO SCH (11:21)
[2023-12-03] MEDS: metFORMIN HCL 500 MG TAB PO SCH (11:21)
--- NOTE | 2023-12-03 14:01 | Pharmacy Report ---
Pharmacy Glycemic Sign Off Nt - Date of Service December 03, 2023 - Assessment & Plan ASSESSMENT: * Pharmacy was consulted by Fortunato Mckeon PA-C on 12/02/23 for glycemic control and to write orders per [facility] inpatient glycemic control protocol. * Patient received 7 units of bolus insulin yesterday for adequate glycemic control. No basal insulin required. * BSGs ranging 113-154 mg/dl * Fasting BSG today AM was 118 mg/dl. * Patient has been on a diet and renal function is stable. * Metformin resumed this morning with breakfast. * Novolog CF was loosened with breakfast and carb ratio removed. * Do not anticipate further changes in patient status that would quickly deteriorate glycemic control (i.e. patient to be NPO for upcoming procedure, steroids tapering, starting tube feedings, etc). PLAN FOR INPATIENT GLYCEMIC CONTROL: No changes needed to current regimen. * Continue Metformin 500 mg PO QAM * Continue NovoLog per scale ACHS/Q6hrs while NPO * Goal range = 110-140 [] mg/dl * CF = 30 mg/dl/unit * CR = none * Pharmacy is signing off of glycemic consult and will no longer be making adjustments to inpatient regimen. Please feel free to re-consult if needed. Thank you.
[2023-12-03] MEDS: GABAPENTIN 300 MG CAP PO SCH (15:08)
[2023-12-03] MEDS: HYDROmorphone INJ 0.5 MG/0.5 ML SYR IV PRN (20:44)
--- NOTE | 2023-12-04 07:34 | Orthopedic Progress Note ---
Date of Service December 04, 2023 Assessment & Plan (1) Osteoarthritis of right knee: Plan: Postop day 2 status post right total knee arthroplasty. DC drain dressing changed today maintain inocente and Acticoat PT/OT protocols. Weightbearing as tolerated. DVT prophylaxis-aspirin p.o. twice daily, SCDs, DILLON jolley. Pain management as written. DC planning-patient is hoping to go to [facility] when authorization has been obtained, today if accepted. Admission and Anticipated Discharge Date Admission Date: December 02, 2023 Subjective Having more pain today. Review of Systems Review of Systems: Noncontributory Physical Exam Physical Exam: Dressing dry and intact circulation sensorimotor exam intact. Baseline neuropathy. Results & Data Vital Signs (Past 12 Hours) Vital Signs Temp Pulse Resp BP BP Pulse Ox O2 Del Method 12/03/23 23:58 37.0 C 76 18 133/75 95 Room Air 12/03/23 20:30 36.5 C 70 16 156/83 H 99 Room Air (1) Osteoarthritis of right knee Osteoarthritis type: primary Qualified Code(s): M17.11 - Unilateral primary osteoarthritis, right knee
--- NOTE | 2023-12-05 08:16 | Orthopedic Progress Note ---
Date of Service December 05, 2023 Assessment & Plan (1) Osteoarthritis of right knee: Plan: Postop day 3 s/p right total knee arthroplasty Patient notes ongoing pain in her knee which has made it difficult for her to get up from bed. On exam, she does have some erythema, edema and warmth with tenderness to palpation. This could still be due to post-operative swelling/hematoma but will obtain labs to ensure hgb is stable and no concern for infection. Will also order RLE venous doppler to r/o DVT. Vital signs have otherwise remained stable. Maintain inocente and Acticoat dressing PT/OT protocols and encourage OOB Weightbearing as tolerated DVT prophylaxis-aspirin p.o. twice daily, SCDs, DILLON hose Pain management as written, encouraged to keep up with this to prevent from getting behind on pain DC planning-patient was hoping to go to [facility], however, insurance denied her stay. She is currently appealing this decision. She will likely be here through the weekend while this is pending Admission and Anticipated Discharge Date Admission Date: December 02, 2023 Subjective Patient tearful this morning. She notes ongoing pain in her knee which has made it difficult for her to get up from bed and work with therapy. She is upset that insurance denied her rehab stay and is appealing this decision. Physical Exam Physical Exam: Resting in bed. Tearful but no acute distress Musculoskeletal: RLE: Dressing dry and intact. Mild erythema, edema and warmth about the knee with tenderness to palpation. Also with tenderness about the calf. Able to slightly lift leg off of the bed but difficult secondary to pain. Dorsi/plantarflexion intact. Baseline neuropathy. D/p pulse intact. Results & Data Vital Signs (Past 12 Hours) Vital Signs Temp Pulse Resp BP Pulse Ox O2 Del Method 12/05/23 07:24 36.7 C 71 18 108/63 96 Room Air 12/04/23 20:47 36.9 C 80 18 160/78 H 98 Room Air (1) Osteoarthritis of right knee Osteoarthritis type: primary Qualified Code(s): M17.11 - Unilateral primary osteoarthritis, right knee
[2023-12-05 10:03] LABS: Basophils # (auto) 0.04 K/uL (0.00-0.20); Basophils % (auto) 0.4 %; Eosinophils # (auto) 0.14 K/uL (0.00-0.50); Eosinophils % (auto) 1.4 %; Hematocrit (blood only) 30.3 % (37.0-47.0); Hemoglobin 9.6 g/dl (12.0-16.0); Immature Granulocytes # (auto) 0.05 K/uL (0.01-0.20); Immature Granulocytes % (auto) 0.5 %; Lymphocytes # (auto) 1.48 K/uL (1.20-3.40); Lymphocytes % (auto) 14.9 %; Mean Corpuscular Hemoglobin 29.4 pg (25.0-34.0); Mean Corpuscular Hgb Conc 31.7 g/dL (32.0-36.0); Mean Corpuscular Volume 92.9 fL (80.0-100.0); Mean Platelet Volume 9.9 fL (9.4-12.4); Monocytes # (auto) 0.98 K/uL (0.11-0.59); Monocytes % (auto) 9.8 %; Neutrophils # (auto) 7.26 K/uL (1.40-6.50); Platelet Count 243 K/uL (130-400); RDW Coefficient of Variation 14.2 % (11.5-14.5); RDW Standard Deviation 47.9 fL (36.4-46.3); Red Blood Count 3.26 M/uL (4.20-5.40); White Blood Count 9.95 K/ul (4.8-10.8)
[2023-12-05 10:13] LABS: Albumin Globulin Ratio 1.5 (0.9-2); Albumin Level 3.5 gm/dl (3.4-5.0); BUN Creatinine Ratio 34.2 (10-20); Bilirubin,Total 0.9 mg/dl (0.2-1.0); Calcium 8.8 mg/dl (8.6-10.3); Creatinine Clr Calc Pharmacy 76.4 ml/min; Est GFR (African American) 88.9 ml/min; Est GFR (Non-African American) 76.7 ml/min; Globulin 2.4 gm/dl (2.5-4.0); Potassium 3.7 mmol/L (3.5-5.1); Total Protein 5.9 gm/dl (6.0-8.3)
--- NOTE | 2023-12-05 11:10 | Ultrasound Report ---
ULTRASOUND RIGHT LOWER EXTREMITY VENOUS CLINICAL HISTORY: Right leg pain and swelling. COMPARISON STUDY: No priors. TECHNIQUE: Real-time, grayscale, and color Doppler sonography of the deep veins of the right lower ex tremity was performed from the inguinal crease to the calf. Compression and augmentation were utilize d. FINDINGS: There is no sonographic evidence of deep venous thrombosis identified in the right lower ex tremity. The common femoral, superficial femoral, and popliteal veins are patent and normally johnathan sible. The greater saphenous vein and the profunda femoris vein at the junction with the common femor al vein are clear. The visualized calf veins are patent. IMPRESSION: There is no sonographic evidence of deep venous thrombosis identified in the right lower extremity. ACT 112: Negative or not required by law. Electronically signed by: Eric Mcleod M.D. 12/05/2023 11:08 AM
[2023-12-05] MEDS: MAGNESIUM HYDROXIDE SUSP 30 ML UDC PO PRN (16:17)
--- NOTE | 2023-12-06 07:26 | Orthopedic Progress Note ---
Date of Service December 06, 2023 Assessment & Plan (1) Osteoarthritis of right knee: Plan: Postop day 4 s/p right total knee arthroplasty Patient notes ongoing pain in her knee which has made it difficult for her to get up from bed and she has been requiring maximum assist. Encouraged to take pain medication as written to keep ahead of it RLE venous doppler was negative for DVT Labs have remained stable. Post-op anemia stable with hgb 9.6 (9.7 on 12/02). No leukocytosis with WBC 9.95 (improved from 12.55 on 12/02) Vital signs have remained stable and she is afebrile. Denies urinary burning but nurse does note she was incontinent yesterday. Unsure if she just didn't make it out of bed in time Maintain inocente and Acticoat dressing PT/OT protocols and encourage OOB as much as possible Weightbearing as tolerated DVT prophylaxis-aspirin p.o. twice daily, SCDs, DILLON hose Pain management as written, encouraged to keep up with this to prevent from getting behind on pain DC planning-patient was hoping to go to [facility], however, insurance denied her stay. She is currently appealing this decision. She will likely be here through the weekend while this is pending Admission and Anticipated Discharge Date Admission Date: December 02, 2023 Subjective Patient resting in bed this morning. Still notes pain in her knee and has been requiring maximum assist to get up and out of bed. Only shaking her head yes and no to answer me this morning, is still upset and does not feel that she is going to get any better. Physical Exam Physical Exam: Resting in bed. No acute distress Musculoskeletal: RLE: Dressing dry and intact. Mild erythema, edema and warmth about the knee with tenderness to palpation, unchanged since yesterday. Compartments remain soft and compressible. Able to slightly lift leg off of the bed but difficult secondary to pain. Dorsi/plantarflexion intact. Baseline neuropathy. D/p pulse intact. Neurologic: Apathetic mood. Answering questions by shaking her head yes and no this morning Results & Data Vital Signs (Past 12 Hours) Vital Signs Temp Pulse Resp BP Pulse Ox O2 Del Method 12/06/23 07:19 36.7 C 73 16 150/71 H 95 Room Air 12/05/23 20:20 Room Air, CPAP Laboratory Results Laboratory Tests 12/05/23 09:35 WBC 9.95 RBC 3.26 L Hgb 9.6 L Hct 30.3 L MCV 92.9 MCH 29.4 MCHC 31.7 L RDW Std Deviation 47.9 H RDW Coeff of Sukumar 14.2 Plt Count 243 MPV 9.9 Immature Gran % (Auto) 0.5 Neut % (Auto) 73.0 Lymph % (Auto) 14.9 [place] % (Auto) 9.8 Eos % (Auto) 1.4 Baso % (Auto) 0.4 Neut # (Auto) 7.26 H Lymph # (Auto) 1.48 [place] # (Auto) 0.98 H Eos # (Auto) 0.14 Baso # (Auto) 0.04 Immature Gran # (Auto) 0.05 Diagnostic Findings RLE Venous Doppler: There is no sonographic evidence of deep venous thrombosis identified in the right lower extremity (1) Osteoarthritis of right knee Osteoarthritis type: primary Qualified Code(s): M17.11 - Unilateral primary osteoarthritis, right knee
--- NOTE | 2023-12-06 09:12 | Communication Note ---
Date of Service: December 06, 2023 Stopped by to see patient as still inpatient and on list but had previously signed off. Messaged orthopedic PA this morning and no need to see but just wanted to follow up. Eating/drinking, moved her bowels but increasing fatigue and doesn't look as good as she did previously. No CP/SOB reported and upset about denial of rehab and family appeal pending. When asked, she denied having been treated for any UTI prior to surgery, urine culture ordered by ortho 11/06. Had some incontinence overnight. UA/cx ordered and ortho reported to follow up. Venous doppler day prior negative for DVT but inquired about when drain removed which was on Thursday. Did message primary service regarding appearance of knee, had PT go in who was with her yesterday w/ reported pain and notable she has significant increase in swelling just distally to her knee which appears to be a hematoma. Very tender/warm. Appears with at least local cellulitis. Recommend consideration for antibiotics. WBC trended down but w/ L shift. Appreciate repeat evaluation of the knee by primary service given concerns for hematoma that may require drain to be replaced vs other. Dr Mike notified and plans for ice/elevation, admit and pain control and will have his PA Codie Stone take care of as is out of town. Please reach out with any questions/concerns.
--- NOTE | 2023-12-06 11:38 | Communication Note ---
Date of Service: December 06, 2023 Patient was reevaluated. She is much more interactive than she was this morning, sitting up in bed and answering questions appropriately. RLE: Dressing remains dry and intact. She does have some erythema and edema about her knee with what appears to be a hematoma about her proximal ratliff, expected post-operatively. This is tender to palpation but not fluctuant. There is also some increased erythema about her distal ratliff, possible early cellulitis. She continues with dorsi/plantarflexion, baseline neuropathy but otherwise NVI. Discussed with Dr. Mike. Will start PO Keflex.
[2023-12-06 12:42] LABS: Appearance Urine Clear (Clear); Bacteria Urine Automated None Seen (None Seen); Bilirubin Urine Negative (Negative); Blood Urine Negative (Negative); Cast Urine Automated 0-2 /lpf (0-2); Color Urine Yellow; Epithelial Cell Urine Auto 0-2 /hpf (0-2); Glucose Urine UA Negative (Negative); Ketones Urine Negative (Negative); Leukocyte Esterase Urine Trace (Negative); Nitrite Urine Negative (Negative); Protein Urine Negative (Negative); RBC Urine Automated 0-2 /hpf (0-2); Specific Gravity Urine 1.024 (1.000-1.030); Urobilinogen Urine Negative (Negative); WBC Urine Automated 0-5 /hpf (0-5); pH Urine 8.5 (4.5-7.5)
[2023-12-06] MEDS: cephALEXin 500 MG CAP PO SCH (14:01)
--- NOTE | 2023-12-07 17:16 | Orthopedic Progress Note ---
Date of Service December 07, 2023 Assessment & Plan (1) Osteoarthritis of right knee: Plan: Postop day 5 s/p right total knee arthroplasty Patient notes ongoing pain in her knee which has made it difficult for her to get up from bed and she has been requiring 1 person assist. Encouraged to take pain medication as written to keep ahead of it RLE venous doppler was negative for DVT Labs have remained stable. Post-op anemia stable with hgb 9.6 (9.7 on 12/02). No leukocytosis with WBC 9.95 (improved from 12.55 on 12/02) Vital signs have remained stable and she is afebrile. Ongoing urinary symptoms, nurse does note she was incontinent yesterday. Unsure if she just didn't make it out of bed in time Maintain inocente and Acticoat dressing PT/OT protocols and encourage OOB as much as possible Weightbearing as tolerated DVT prophylaxis-aspirin p.o. twice daily, SCDs, DILLON hose Pain management as written, encouraged to keep up with this to prevent from getting behind on pain DC planning-patient was hoping to go to [facility], however, insurance denied her stay. She is currently appealing this decision. Due to her slow recovery and poor progress strongly feels to be a benefit of going to an nursing facility. Continue daily PT. Have medical team follow-up on urinary problem Admission and Anticipated Discharge Date Admission Date: December 07, 2023 Subjective Patient having a lot of pain and poor mobility. Also complaining of urinary incontinence frequency. Physical Exam Physical Exam: Right knee moderately swollen not tense. Has some subtle erythema on pretibial area not too and different from what she had preoperatively. Has some small fracture blisters adjacent to the inocente occlusive dressing which is still in place and maintaining suction. Some pretibial ecchymosis and swelling consistent with dependent ecchymosis from postop bleeding. Generalized decreased sensation due to neuropathy no change from preop. Results & Data Vital Signs (Past 12 Hours) Vital Signs Temp Pulse Resp BP BP Pulse Ox O2 Del Method 12/07/23 15:35 36.5 C 71 18 130/88 100 Room Air 12/07/23 07:31 72 145/72 H 99 Room Air 12/07/23 07:17 36.6 C 74 16 162/85 H 100 Room Air Laboratory Results Urinalysis showed multiple francisco possible contaminant no clear organism that would be causing infection (1) Osteoarthritis of right knee Osteoarthritis type: primary Qualified Code(s): M17.11 - Unilateral primary osteoarthritis, right knee
--- NOTE | 2023-12-08 17:57 | Orthopedic Progress Note ---
Date of Service December 08, 2023 Assessment & Plan (1) Osteoarthritis of right knee: Plan: Postop day 6 s/p right total knee arthroplasty Patient notes ongoing pain in her knee which has made it difficult for her to get up from bed and she has been requiring 1 person assist. Encouraged to take pain medication as written to keep ahead of it RLE venous doppler was negative for DVT Labs have remained stable. Post-op anemia stable with hgb 9.6 (9.7 on 12/02). No leukocytosis with WBC 9.95 (improved from 12.55 on 12/02) Vital signs have remained stable and she is afebrile. Ongoing urinary symptoms, nurse does note she was incontinent yesterday. Unsure if she just didn't make it out of bed in time Maintain inocente and Acticoat dressing PT/OT protocols and encourage OOB as much as possible Weightbearing as tolerated DVT prophylaxis-aspirin p.o. twice daily, SCDs, DILLON hose Pain management as written, encouraged to keep up with this to prevent from getting behind on pain DC planning-patient was hoping to go to [facility], however, insurance denied her stay. She is currently appealing this decision. Due to her slow recovery and poor progress strongly feels to be a benefit of going to an nursing facility. Continue daily PT. physical therapist does not feel she is independent yet and needs daily physical therapy and hospital pending rehab placement at this point. Admission and Anticipated Discharge Date Admission Date: December 07, 2023 Subjective Patient felt she did little better today but still needs help getting out of bed Physical Exam Physical Exam: Resolving ecchymosis of the knee. Moderate swelling still. Still red appearance of the ratliff probably noninfectious cellulitis. Fracture blisters drying up laterally. Distal neurological exam circulation intact. Results & Data Vital Signs (Past 12 Hours) Vital Signs Temp Pulse Resp BP Pulse Ox O2 Del Method 12/08/23 15:02 36.7 C 71 16 171/78 H 100 Room Air 12/08/23 07:37 36.6 C 70 16 118/69 98 Room Air (1) Osteoarthritis of right knee Osteoarthritis type: primary Qualified Code(s): M17.11 - Unilateral primary osteoarthritis, right knee
--- NOTE | 2023-12-09 13:57 | Orthopedic Progress Note ---
Date of Service December 09, 2023 Assessment & Plan (1) Osteoarthritis of right knee: Plan: Postop day 7 s/p right total knee arthroplasty Patient notes ongoing pain in her knee which has made it difficult for her to get up from bed and she has been requiring 1 person assist. Encouraged to take pain medication as written to keep ahead of it RLE venous doppler was negative for DVT Labs have remained stable. Post-op anemia stable with hgb 9.6 (9.7 on 12/02). No leukocytosis with WBC 9.95 (improved from 12.55 on 12/02) Vital signs have remained stable and she is afebrile. Ongoing urinary symptoms, nurse does note she was incontinent yesterday. Unsure if she just didn't make it out of bed in time Maintain inocente and Acticoat dressing PT/OT protocols and encourage OOB as much as possible Weightbearing as tolerated DVT prophylaxis-aspirin p.o. twice daily, SCDs, DILLON hose Pain management as written, encouraged to keep up with this to prevent from getting behind on pain Will have inocente removed tomorrow and placed dry sterile dressing on incisional site. DC planning-patient was hoping to go to [facility], however, insurance denied her stay. She is currently appealing this decision. Due to her slow recovery and poor progress strongly feels to be a benefit of going to an nursing facility. Continue daily PT. physical therapist does not feel she is independent yet and needs daily physical therapy and hospital pending rehab placement at this point. Admission and Anticipated Discharge Date Admission Date: December 07, 2023 Subjective Doing better with pain doing a little better with therapy. Physical Exam Physical Exam: Swelling decreasing in leg. Still has some noninfectious cellulitis in the leg which is chronic, fracture blisters drying up, ecchymosis gradually resolving, still has good seal with inocente, circulation sensorimotor exam unchanged. Results & Data Vital Signs (Past 12 Hours) Vital Signs Temp Pulse Resp BP BP Pulse Ox O2 Del Method 12/09/23 12:41 36.5 C 64 18 140/81 99 Room Air 12/09/23 07:37 36.3 C L 60 18 151/66 H 100 Room Air (1) Osteoarthritis of right knee Osteoarthritis type: primary Qualified Code(s): M17.11 - Unilateral primary osteoarthritis, right knee
--- NOTE | 2023-12-10 09:44 | Orthopedic Progress Note ---
Date of Service December 10, 2023 Assessment & Plan (1) Osteoarthritis of right knee: Plan: Postop day 8 s/p right total knee arthroplasty Patient notes ongoing pain in her knee which has made it difficult for her to get up from bed and she has been requiring 1 person assist. Encouraged to take pain medication as written to keep ahead of it RLE venous doppler was negative for DVT Labs have remained stable. Post-op anemia stable with hgb 9.6 (9.7 on 12/02). No leukocytosis with WBC 9.95 (improved from 12.55 on 12/02) Vital signs have remained stable and she is afebrile. Ongoing urinary symptoms, nurse does note she was incontinent yesterday. Unsure if she just didn't make it out of bed in time Inocente dressing removed today per Dr. Young's request. PT/OT protocols and encourage OOB as much as possible. Patient ambulated what appears to be at 140 feet per physical therapy notes yesterday. Weightbearing as tolerated DVT prophylaxis-aspirin p.o. twice daily, SCDs, DILLON hose Pain management as written, encouraged to keep up with this to prevent from getting behind on pain Will have inocente removed tomorrow and placed dry sterile dressing on incisional site. DC planning- Plans initially for [facility] have been denied by [employer] insurance. Family appeal has been placed. Awaiting answer from insurance company. Plans will be to set up home health services for her if denied by [employer]. Admission and Anticipated Discharge Date Admission Date: December 07, 2023 Subjective Postop day 8 patient sitting up in bed awake and alert. Long discussion about her insurance denial as well as a family appeal is in the process. They are not exactly hopeful and plans will be to arrange for home health services if needed. Patient states that she is feeling somewhat tired today. No other complaints. She felt that her incision area looked better today. Physical Exam Physical Exam: Inocente dressing is intact. She has 1 area of drainage noted that is dry on the dressing itself. Fracture blisters that were on the lateral aspect the leg have been decompressed and are healing well. They are small. Erythema down below the dressing is dissipating. Inocente dressing is removed today. Staple line is intact. Majority of the wound appears benign. She does have some bruising around the central portion of the incision but otherwise there is no drainage and the wound is looking good. Calves are soft nontender. Neurovascular intact. Toes are mobile. Results & Data Vital Signs (Past 12 Hours) Vital Signs Temp Pulse Resp BP Pulse Ox O2 Del Method 12/10/23 08:32 36.7 C 67 18 157/64 H 100 Room Air 12/09/23 22:25 36.6 C 73 15 126/77 95 Room Air (1) Osteoarthritis of right knee Osteoarthritis type: primary Qualified Code(s): M17.11 - Unilateral primary osteoarthritis, right knee
--- NOTE | 2023-12-11 06:59 | Orthopedic Progress Note ---
Date of Service December 11, 2023 Assessment & Plan (1) Osteoarthritis of right knee: Plan: Postop day 9 s/p right total knee arthroplasty Patient notes ongoing pain in her knee which has made it difficult for her to get up from bed and she has been requiring 1 person assist. Encouraged to take pain medication as written to keep ahead of it RLE venous doppler was negative for DVT Labs have remained stable. Post-op anemia stable with hgb 9.6 (9.7 on 12/02). No leukocytosis with WBC 9.95 (improved from 12.55 on 12/02) Vital signs have remained stable and she is afebrile. Ongoing urinary symptoms, nurse does note she was incontinent yesterday. Unsure if she just didn't make it out of bed in time. PT/OT protocols and encourage OOB as much as possible. Patient ambulated what appears to be at 140 feet per physical therapy notes yesterday. Weightbearing as tolerated DVT prophylaxis-aspirin p.o. twice daily, SCDs, DILLON hose Pain management as written, encouraged to keep up with this to prevent from getting behind on pain DC planning- Plans initially for [facility] have been denied by [employer] insurance. Family appeal has been placed. Awaiting answer from insurance company. Plans will be to set up home health services for her if denied by [employer]. Admission and Anticipated Discharge Date Admission Date: December 07, 2023 Subjective Postop day 9 patient awake and alert this morning. Sitting up in bed. States that her knee feels sore this morning. She states that the mornings are the hardest to get moving. No other complaints this morning. Physical Exam Physical Exam: Ana dressing was removed yesterday. Wound is well-approximated. Some residual erythema noted below the wound going down towards the ankle. Swelling consistent with surgery. Calves are soft and nontender. Toes are mobile. Results & Data Vital Signs (Past 12 Hours) Vital Signs Temp Pulse Resp BP Pulse Ox O2 Del Method 12/10/23 22:53 36.8 C 69 16 126/71 96 Room Air (1) Osteoarthritis of right knee Osteoarthritis type: primary Qualified Code(s): M17.11 - Unilateral primary osteoarthritis, right knee
--- NOTE | 2023-12-17 16:23 | Discharge Summary ---
Date of Service December 17, 2023 Admission HPI Per Admitting Provider Patient denies headaches, sweats, fevers, chills, double vision, blurred vision, cough, sore throat, dysphagia, chest pain, wheezing, n/v/d, fatigue, urinary symptoms, mood disorders. ROS positive for use of home CPAP, foot neuropathy, some shortness of breath with activity, anemia, obesity, history of kidney stones Admission Exam Per Admitting Provider Patient: DAVIE APONTE Admit Date: 10/13/23 MR#: [id number] Att Phy: Shane Mike M.D. Acct ID: [id number] Marielena Phy: Darion Bullock MD Date: 1950 Fam Phy: Age: 73 Location: U Sex: F Room/Bed: cc: [facility]~ *NOTICE TO RECEIVING REPUBLICAN/AGENCY This information is strictly Confidential and protected under [place] law. [place] law prohibits you from making any further disclosure of this information unless further disclosure is expressly permitted by the written consent of the person to whom it pertains or is authorized by law. A general authorization for the release of medical or other information is not sufficient for this purpose. Hospital accepts no responsibility if the information is made available to any other person, INCLUDING THE PATIENT. Date of Service November 27, 2023 Assessment & Plan (1) Osteoarthritis of right knee: Plan: Severe end-stage osteoarthritis right knee with bone loss. Plan for persona total knee replacement with CPS polyethylene for stability and stemmed tibial cemented prosthetic. Osteoarthritis type: primary Qualified Code(s): M17.11 - Unilateral primary osteoarthritis, right knee History of Present Illness Primary Care Provider: Darion Bullock MD Patient denies headaches, sweats, fevers, chills, double vision, blurred vision, cough, sore throat, dysphagia, chest pain, wheezing, n/v/d, fatigue, urinary symptoms, mood disorders. ROS positive for use of home CPAP, foot neuropathy, some shortness of breath with activity, anemia, obesity, history of kidney stones Allergies Allergy/AdvReac Type Severity Reaction Status Date / Time sulfamethoxazole AdvReac "Didn't Verified 11/23/23 14:11 [From Bactrim] work for the infection I had" trimethoprim [From Bactrim] AdvReac "Didn't Verified 11/23/23 14:11 work for the infection I had" Home Medications Medication Instructions Recorded Confirmed Type blood-glucose meter (OneTouch #1 ea 04/24/20 11/23/23 Rx Ultra2 Meter kit) CPAP 4 cm Water Full Face mask #1 ea 08/06/20 11/23/23 Rx blood sugar diagnostic #100 ea 10/23/22 11/23/23 Rx lancets 33 gauge #100 ea 10/23/22 11/23/23 Rx aspirin 81 mg tablet,delayed 81 mg PO QAM 03/09/23 11/23/23 History release cyanocobalamin (vitamin B-12) 1,000 mcg IM Q30D 04/13/23 11/23/23 History 1,000 mcg/mL injection solution metformin 500 mg tablet 500 mg PO QAM #90 tabs 06/05/23 11/23/23 Rx lisinopril 20 mg tablet 20 mg PO QAM 06/30/23 11/23/23 History cranberry 500 mg capsule 500 mg PO QAM 07/15/23 11/23/23 History diphenhydramine 25 1 tab PO HS 07/15/23 11/23/23 History mg-acetaminophen 500 mg tablet (Tylenol PM Extra Strength) ondansetron 4 mg disintegrating 4 mg PO Q8H PRN Nausea 07/21/23 11/23/23 History tablet colestipol 1 gram tablet (Colestid) 2 g (2 x 1 gram) PO BID #360 tabs 08/07/23 11/23/23 Rx multivitamin (Daily Multi-Vitamin 1 tab PO DAILY 09/10/23 11/23/23 History tablet) sertraline 50 mg tablet 50 mg PO QAM #90 tabs 09/14/23 11/23/23 Rx atorvastatin 20 mg tablet 20 mg PO HS #90 tabs 09/25/23 11/23/23 Rx gabapentin 300 mg capsule See Rx Instructions .Route 10/19/23 11/23/23 Rx .COMPLEX #150 caps potassium citrate 5 mEq (540 mg) 5 meq PO BID #60 tabs 10/20/23 11/23/23 Rx tablet,extended release (Urocit-K 5) ascorbic acid (vitamin C) 250 mg 500 mg (2 x 250 mg) PO BID #60 tabs 11/16/23 11/23/23 Rx tablet ferrous sulfate 325 mg (65 mg 325 mg PO BID #60 tabs 11/16/23 11/23/23 Rx iron) tablet ketoconazole 2 % topical cream 1 applic topical BID #15 grams 11/16/23 11/23/23 Rx mupirocin 2 % topical ointment 1 applic topical BID #15 grams 11/16/23 11/23/23 Rx omeprazole 40 mg capsule,delayed 40 mg PO BID #60 caps 11/16/23 11/23/23 Rx release hydrocodone 7.5 mg-acetaminophen 1 tab PO BID PRN pain #60 tabs 11/19/23 11/23/23 Rx 325 mg tablet Past Med/Surg History Medical History Actinic keratosis Allergic rhinitis Arteriosclerotic coronary artery disease Benign essential hypertension Carpal tunnel syndrome on both sides Depression Diabetic neuropathy DM type 2 (diabetes mellitus, type 2) Gait disorder History of COVID-19 History of kidney stones Hx of vertigo Hypercholesterolemia Raynaud phenomenon Sleep apnea Urge and stress incontinence Venous insufficiency Surgical History History of abdominal hysterectomy History of cataract surgery History of colonoscopy History of cystoscopy History of esophagogastroduodenoscopy (EGD) History of lithotripsy History of nasal septoplasty History of oral surgery History of total left knee replacement (TKR) S/P cholecystectomy Thoracic disc herniation Family History Prostate cancer BrotherAortic aneurysm FatherNo family history of adverse response to anesthesia Myocardial infarction Mother FatherDisc degeneration, lumbar BrotherHypertension BrotherDenies family history of Ovarian cancer Breast cancer Colorectal cancer Social History Smoking Status: Never smoker Second Hand Exposure: Yes (as a child); Do You Dip or Chew Tobacco: No; Hx Alcohol Use: No Preferred Language: Lao Communication Ability: Effective Visual Impairment: Partially Limited Hearing Ability: Normal Press Operator Meat Required: No Beliefs That Will Affect Care: Sikh Sikh Beliefs: Gnosticist marital status: Current Living Situation: Spouse current occupational status: retired current occupation: part-time home health aid How many Children do You have: 3 How many Children do You have Comment: 2 Alive and 1 Feels Safe at Home: Yes Childhood Exposure to Second-Hand Smoke: Yes Diet: regular caffeine: Yes (soda occasionally/ coffee rarely in winter) during the past year weight has: remained stable Dental Care, Regularly: Yes Physical Activity Frequency: Does not Exercise Seatbelt Use: always Sunscreen Use: Yes Do you think of yourself as: straight/heterosexual Gender Identity: Female Assistive Devices: CPAP, Denture - Upper, Glasses and Walker Review of Systems All systems reviewed & are unremarkable except as noted in HPI & below Physical Exam Constitutional: WD/WN, vitals as above Respiratory: normal respiratory effort; no respiratory distress Cardiovascular: Rate/Rhythm: regular rate and regular rhythm Musculoskeletal: Right knee with moderate swelling patella crepitation painful range of motion 25 through 95 degrees of range of motion normal strength and neurological exam intact except for chronic lymphedema right lower extremity and foot neuropathy. Skin: no rashes, warm and dry Neurologic: normal touch/pain/proprioception Psychiatric: A+Ox3, euthymic affect Results & Data Diagnostic Findings Right knee x-rays demonstrate a varus knee with [id number] medial compartment with subluxation of the femur medially on the tibia with medial compartment osteophytes and moderately advanced patellofemoral osteophytes and an ipsilateral total knee replacement. Signed By: <Electronically signed by Shane Miek MD> 11/27/232032 Created: 11/27/232022 The status of this report is Signed. Draft = Not yet reviewed or approved by Medical Physician. Signed = Reviewed and approved by Medical Physician. Principal Diagnosis Primary severe end-stage osteoarthritis right knee Discharge Data Allergies Allergy/AdvReac Type Severity Reaction Status Date / Time sulfamethoxazole AdvReac "Didn't Verified 12/02/23 08:53 [From Bactrim] work for the infection I had" trimethoprim [From Bactrim] AdvReac "Didn't Verified 12/02/23 08:53 work for the infection I had" Consultations 12/02/23 05:00 Consult Hospitalist Routine Procedures Performed Operation Date: 12/02/23 10:05 Actual Procedures p Right Total Knee Arthroplasty(Right) - Sahne Mike MD Ordered Studies 12/02/23 05:00 US - OR guided needle placemen Routine 12/05/23 09:38 US venous doppler LE RT Stat Hospital Course (1) Osteoarthritis of right knee: Patient had prolonged hospital course with multiple day admission. She had no medical or orthopedic complications requiring the long admission. She had low pain threshold requiring pain medication and she has significant obesity and failed to mobilize in a typical fashion post knee replacement requiring multiple person assist that required ongoing admission. Her insurance company repeatedly denied rehab stay and she was not safe to go home so we had to continue the admission. As of postop day 9 s/p right total knee arthroplasty Patient notes ongoing pain in her knee which has made it difficult for her to get up from bed and she has been requiring 1 person assist. Encouraged to take pain medication as written to keep ahead of it RLE venous doppler was negative for DVT Labs have remained stable. Post-op anemia stable with hgb 9.6 (9.7 on 12/02). No leukocytosis with WBC 9.95 (improved from 12.55 on 12/02) Vital signs have remained stable and she is afebrile. Ongoing urinary symptoms, nurse does note she was incontinent yesterday. Unsure if she just didn't make it out of bed in time. PT/OT protocols and encourage OOB as much as possible. Patient ambulated what appears to be at 140 feet per physical therapy notes yesterday. Weightbearing as tolerated DVT prophylaxis-aspirin p.o. twice daily, SCDs, DILLON hose Pain management as written, encouraged to keep up with this to prevent from getting behind on pain DC planning- Plans initially for [facility] have been denied by [employer]. Family appeal has been placed which was also denied. Plans will be to set up home health services with [id number] which was her ultimate disposition. Patient had home PT OT. Total Time Total Time Spent Total Time Spent (In Minutes): 15 Discharge Plan Discharge Items Patient Disposition: Home - Home Health Services Reason For Visit: Osteoarthritis Knee Right Discharge Diagnosis: Osteoarthritis Right Knee Activity: Per Instructions section Weightbearing: Full weightbearing Non-emergency contact: Surgeon Call non-emergency contact if: you have any medication questions, your pain is not controlled, your temperature is above 101.5, your wound has increased redness and your wound has increased drainage Follow-up/Referrals: Darion Bullock MD [Primary Care Provider] - Shane Mike MD [Surgeon] - (Follow up with Dr. Mike in 2 weeks from the day of surgery for your first post operative visit) Diet: Carb Consistent or DM2 Addtl Attending Provider Instructions: ACTIVITY RECOMMENDATIONS: SELF CARE INSTRUCTIONS AFTER TOTAL KNEE REPLACEMENT A. You may need to continue a physical therapy program after discharge from the hospital. There are several options available to you. Your doctor will assist you in selecting the best one for you. 1. An out-patient facility 2 to 3 times a week for therapy or home therapy. 2. Continue working on all exercises taught to you in the hospital. Your goals should be to increase bending of your knee to 90 degrees and beyond and to fully straighten your knee. B. You may progress at your own pace from walking with a walker or crutches to a cane; then to no assistive devices. C. Make walking a part of your daily routine. Be up as much as comfortable with rest periods throughout the day. Rest with leg elevation is very important. Use the ice wrap frequently for the first 3-4 weeks. D. There are no restrictions on activities. You may ride in a car, shop, participate in cell feed department supervisor and all social activities. E. Wear the long elastic stockings (DILLON hose) 20 hours a day for 2 weeks after surgery. They can be removed several times a day for laundering and for a bath. F. You may shower, no tub baths until cleared by your doctor. SPECIAL CARE INSTRUCTIONS: VERY IMPORTANT TO READ AND REVIEW A. There are a few signs you need to watch for after you are home. Call [facility] if you notice any of the followin. Increased severe knee pain. Some pain is expected especially when you exercise. 2. Increased swelling in your leg or knee; pain or swelling of the calf muscle in either lower leg. 3. Any fluid drainage from the incision. 4. Shortness of breath or chest pain. B. [facility] if you have any concerns or questions about your operation or recovery. The doctor or his nurse will return your call promptly. C. You must take antibiotics before dental work, bladder, bowel or other surgery. Your doctor will provide you with a permanent care to carry describing this precaution. IMPORTANT: * REMEMBER TO TAKE ASPIRIN, 81 MG, TWICE DAILY FOR 4 WEEKS UNLESS OTHERWISE DIRECTED. THIS IS YOUR BLOOD THINNER. * HIGH RISK PATIENTS MAY BE PRESCRIBED A STRONGER BLOOD THINNER. THIS WILL BE PROVIDED AT DISCHARGE. * CALL IF INCREASED PAIN, REDNESS, DRAINAGE OR FEVER GREATER THAT 101. * WEAR DILLON HOSE 20 HOURS PER DAY FOR 2 WEEKS. * CARLOS Dressing - This is a large suction dressing covering your incision. This will help pull any excess drainage from the wound and allow your incision to heal properly. You may shower with this if you can keep the unit outside of the shower. If any bleeding or leakage is noted please call your doctor's office. This will remain on your incision for 7 days and then should be removed. This can be done yourself or by the home nursing staff if applicable. The entire unit is disposable once removed. Once removed, keep incision clean and dry. If redness or drainage is noted, please call your surgeon. . FOLLOW UP VISIT: If appointment is not already scheduled: Please call [facility] to make a follow-up appointment for 2 weeks after your surgery at . Stand-Alone Forms: My [facility] [employer], Pain - Opioid Pain Management, Smoking Cessation Medications and DC Order Prescriptions: New cefadroxil 500 mg capsule 500 mg PO BID Qty: 28 1RF aspirin 81 mg Tablet,Delayed Release (Dr/Ec) 81 mg PO BID 30 Days Qty: 60 0RF oxycodone 5 mg tablet 5 - 10 mg PO Q6H PRN (Reason: pain) Qty: 30 0RF Rx Instructions: ongoing therapy, supervising dr alpa mendieta. max 6 tabs in 24 hours Continued (DME) CPAP 4 cm Water Full Face mask See Rx Instructions .Route .MEDSUPPLY Qty: 1 0RF Rx Instructions: As directed (DME) blood sugar diagnostic Strip See Rx Instructions .ROUTE .MEDSUPPLY Qty: 100 2RF Rx Instructions: As directed test 1 x/day (DME) lancets 33 gauge misc See Rx Instructions .Route Qty: 100 1RF Rx Instructions: check once daily metformin 500 mg tablet 500 mg PO QAM Qty: 90 3RF ondansetron 4 mg tablet,disintegrating 4 mg PO Q8H PRN (Reason: Nausea) Patient Comments: [facility] 07/20/23 colestipol [Colestid] 1 gram tablet 2 g PO BID Qty: 360 3RF sertraline 50 mg tablet 50 mg PO QAM Qty: 90 0RF atorvastatin 20 mg tablet 20 mg PO HS Qty: 90 3RF Rx Instructions: TAKE 1 TABLET BY MOUTH AT BEDTIME gabapentin 300 mg capsule See Rx Instructions .ROUTE .COMPLEX Qty: 150 2RF Rx Instructions: 2 po 8 am 1 po at 1400 and 2 po at HS potassium citrate [Urocit-K 5] 5 mEq (540 mg) tablet extended release 5 meq PO BID Qty: 60 2RF (DME) blood-glucose meter [[employer] Ultra2 Meter] Kit See Rx Instructions .ROUTE .MEDSUPPLY Qty: 1 0RF Rx Instructions: As directed Dx E11.9 Test 1x/day ketoconazole 2 % cream 1 applic topical BID Qty: 15 1RF mupirocin 2 % ointment 1 applic topical BID Qty: 15 1RF omeprazole 40 mg capsule,delayed release(DR/EC) 40 mg PO BID Qty: 60 2RF ascorbic acid (vitamin C) 250 mg tablet 500 mg PO BID Qty: 60 2RF ferrous sulfate 325 mg (65 mg iron) tablet 325 mg PO BID Qty: 60 2RF lisinopril 20 mg tablet 20 mg PO QAM cranberry 500 mg Capsule 500 mg PO QAM Rx Instructions: administer with meals cyanocobalamin (vitamin B-12) [Vitamin B-12] 1,000 mcg Tablet 1,000 mcg PO DAILY ascorbic acid (vitamin C) [Vitamin C] 500 mg Tablet 500 mg PO DAILY Discontinued hydrocodone-acetaminophen 7.5-325 mg tablet 1 tab PO BID PRN (Reason: pain) Qty: 60 0RF Rx Instructions: ONGOING THERAPY aspirin 81 mg tablet,delayed release (DR/EC) 81 mg PO QAM Tylenol PM Extra Strength 25-500 mg Tablet 1 tab PO HS Krames/Other Patient Handouts: DVT Post Op Prevention Admission Data Admit Date/Time: 12/02/23 12:25 Attending Provider: Shane Mike Admit Provider: Shane Mike Primary Care Provider: Darion Bullock Other Providers: Nicanor Sung; Garth So Other Interventions: Discharge Summary Assessment (RN) Last Done: 12/11/23 15:50
== END 2023-12-11 16:42 | disposition home health service (06) | DRG 470 ==
LOC: PACUINP 08:22 → ASU 08:22 → 3E 15:30